=== PATIENT | male | born 1985 | race Caucasian/White ===

== ENCOUNTER 2023-10-03 10:02 | Emergency (ER) | payer OTHER ==
[~2023-10-03] VITALS: Ht 182.9 cm; Wt 79.5 kg
[2023-10-03 10:14] VITALS: BP 119/75; PULSE 90; RESP 15; TEMP 98.3
[2023-10-03] MEDS ORDERED: PERTUSS(ACELL),DIPH,TET VAC/PF 0.5 ML SYRINGE IM. ONE (10:45)
[2023-10-03] MEDS ORDERED: LIDOCAINE 1%/EPI 1:200,000/PF 30 ML VIAL SQ ONE (11:00)
[2023-10-03] MEDS ORDERED: CEPH-558 PO (12:05)
== END 2023-10-03 12:13 | disposition home or self-care (01) ==
LOC: EMS 10:05
DX: S01.81XA Laceration without foreign body of other part of head, initial encounter (principal); M54.50 Low back pain, unspecified; F12.90 Cannabis use, unspecified, uncomplicated; F11.90 Opioid use, unspecified, uncomplicated; F15.90 Other stimulant use, unspecified, uncomplicated; W18.39XA Other fall on same level, initial encounter; Y93.89 Activity, other specified; Y92.89 Other specified places as the place of occurrence of the external cause; Y99.8 Other external cause status
CPT/HCPCS: 99285; 70450; 72125; 72131; 90715; 90471; 12013; J3490

== ENCOUNTER 2023-12-29 08:48 | Emergency (ER) | payer OTHER ==
[~2023-12-29] VITALS: Ht 182.9 cm; Wt 80.0 kg
[~2023-12-29 08:48] MED LIST: CEPH-558 PO
[2023-12-29 08:52] VITALS: TEMP 97.1
[2023-12-29 09:46] LABS: ALANINE AMINOTRANSFERASE 69 U/L (12-78); ALBUMIN 4.1 g/dL (3.4-5.0); ALKALINE PHOSPHATASE 116 U/L (46-116); ANION GAP 10 mmol/L (8-16); BASOPHILS % (AUTO) 0.3 % (0.0-2.0); BILIRUBIN,TOTAL 0.8 mg/dL (0.1-1.0); CALCIUM, TOTAL 9.5 mg/dL (8.8-10.5); CARBON DIOXIDE 27 mmol/L (22-29); CHLORIDE 97 mmol/L (98-107); EOSINOPHILS % (AUTO) 0.3 % (1.0-6.0); GLOMERULAR FILTR. RATE CALC > 60 mL/min (>60); GLUCOSE,RANDOM 93 mg/dL (70-110); HEMATOCRIT 39.3 % (41-53); HEMOGLOBIN 13.3 g/dL (13.5-17.5); LYMPHOCYTES # (AUTO) 0.4 K/uL (1.0-4.8); LYMPHOCYTES % (AUTO) 6.5 % (22.0-44.0); MEAN CORPUSCULAR HEMOGLOBIN 32.8 pg (26.0-34.0); MEAN CORPUSCULAR HGB CONC 33.8 G/dL (31.0-37.0); MEAN CORPUSCULAR VOLUME 97 fL (80-100); MONOCYTES # (AUTO) 0.4 K/uL (0.1-1.0); MONOCYTES % (AUTO) 5.6 % (2.0-9.0); NEUTROPHILS # (AUTO) 5.5 K/uL (1.8-7.7); PLATELET COUNT (AUTO) 277 K/uL (150-450); RED BLOOD CELL COUNT(AUTO) 4.06 MIL/uL (4.50-5.90); RED CELL DISTRIBUTION WIDTH 13.9 % (11.5-14.5); SODIUM SERUM 133 mmol/L (136-145); TOTAL PROTEIN, SERUM 7.4 g/dL (6.4-8.2); UREA NITROGEN, BLOOD 14 mg/dL (7-18); WHITE BLOOD COUNT (AUTO) 6.3 K/uL (4.5-11.0)
[2023-12-29 09:48] LABS: NEUTROPHILS % (AUTO) 87.3 % (40.0-70.0)
[2023-12-29 09:49] LABS: ALCOHOL, BLOOD (SERUM) < 3 mg/dL (0-10); ASPARTATE AMINOTRANSFERASE 127 U/L (15-37)
[2023-12-29] MEDS: BACITRACIN 0.9 GM PACKET OINTMENT TP ONE (10:01)
[2023-12-29] MEDS: POTASSIUM CHLORIDE 20 MEQ ER TABLET PO ONE (10:42)
[2023-12-29 11:32] VITALS: BP 144/95; PULSE 100; RESP 16
== END 2023-12-29 12:52 | disposition home or self-care (01) ==
LOC: EMS 08:48
DX: F41.9 Anxiety disorder, unspecified (principal); M79.672 Pain in left foot; M79.671 Pain in right foot; F12.90 Cannabis use, unspecified, uncomplicated; F15.90 Other stimulant use, unspecified, uncomplicated; F11.90 Opioid use, unspecified, uncomplicated
CPT/HCPCS: 99283; 80053; 85025; 36415; G0480

== ENCOUNTER 2024-01-26 21:27 | Inpatient (IN) | payer OTHER ==
[~2024-01-26] VITALS: Ht 182.9 cm; Wt 70.5 kg
[2024-01-27] MEDS ORDERED: LIDOCAINE 1% 20 ML VIAL SQ ONE (01:00)
[2024-01-27 01:38] LABS: BASOPHILS % (AUTO) 0.3 % (0.0-2.0); EOSINOPHILS % (AUTO) 0.5 % (1.0-6.0); HEMATOCRIT 30.5 % (41-53); HEMOGLOBIN 10.1 g/dL (13.5-17.5); LYMPHOCYTES # (AUTO) 1.1 K/uL (1.0-4.8); LYMPHOCYTES % (AUTO) 6.2 % (22.0-44.0); MEAN CORPUSCULAR HEMOGLOBIN 31.3 pg (26.0-34.0); MEAN CORPUSCULAR HGB CONC 33.2 G/dL (31.0-37.0); MEAN CORPUSCULAR VOLUME 94 fL (80-100); MONOCYTES # (AUTO) 1.7 K/uL (0.1-1.0); MONOCYTES % (AUTO) 9.7 % (2.0-9.0); NEUTROPHILS # (AUTO) 14.7 K/uL (1.8-7.7); NEUTROPHILS % (AUTO) 83.3 % (40.0-70.0); PLATELET COUNT (AUTO) 376 K/uL (150-450); RED BLOOD CELL COUNT(AUTO) 3.23 MIL/uL (4.50-5.90); RED CELL DISTRIBUTION WIDTH 13.7 % (11.5-14.5); WHITE BLOOD COUNT (AUTO) 17.6 K/uL (4.5-11.0)
[2024-01-27] MEDS: LIDOCAINE/PF 1% 5 ML VIAL SQ ONE (01:54)
[2024-01-27 01:57] LABS: ANION GAP 4 mmol/L (8-16); CALCIUM, TOTAL 8.6 mg/dL (8.8-10.5); CARBON DIOXIDE 32 mmol/L (22-29); CHLORIDE 98 mmol/L (98-107); CREATININE 0.75 mg/dL (0.60-1.30); GLOMERULAR FILTR. RATE CALC > 60 mL/min (>60); GLUCOSE,RANDOM 102 mg/dL (70-110); POTASSIUM 4.2 mmol/L (3.5-5.1); SODIUM SERUM 134 mmol/L (136-145); UREA NITROGEN, BLOOD 12 mg/dL (7-18)
[2024-01-27 02:04] LABS: ALANINE AMINOTRANSFERASE 20 U/L (12-78); ALBUMIN 2.3 g/dL (3.4-5.0); ALKALINE PHOSPHATASE 102 U/L (46-116); ASPARTATE AMINOTRANSFERASE 24 U/L (15-37); BILIRUBIN,TOTAL 0.3 mg/dL (0.1-1.0); TOTAL PROTEIN, SERUM 6.4 g/dL (6.4-8.2)
[2024-01-27] MEDS: CEFTAROLINE 600 MG/D5W 250 ML IV ONE (03:13)
[2024-01-27 04:59] LABS: COVID AG,FIA SOURCE NASAL SWAB
[2024-01-27 05:14] LABS: SARS-COV2 (COVID) ANTIGEN,FIA Negative (Negative)
[2024-01-27] MEDS ORDERED: ACETAMINOPHEN 325 MG TABLET PO PRN (08:30)
[2024-01-27] MEDS ORDERED: MORPHINE SULFATE 2 MG/ML SYRINGE IVP PRN (08:30)
[2024-01-27] MEDS ORDERED: OxyCODONE HCL/ACETAMINOPHEN 5-325 MG TABLET PO PRN (08:30)
[2024-01-27] MEDS ORDERED: MAGNESIUM HYDROXIDE SUSPENSION 30 ML UDCUP PO PRN (08:30)
[2024-01-27] MEDS ORDERED: ONDANSETRON HCL 4 MG/2 ML VIAL IVP PRN (08:30)
[2024-01-27] MEDS ORDERED: ZOLPIDEM TARTRATE 5 MG TABLET PO PRN (08:30)
[2024-01-27] MEDS: VANCOMYCIN 1.75GM/WATER(PEG) 350 ML IV ONE (09:14)
[2024-01-27] MEDS: FAMOTIDINE 20 MG TABLET PO SCH (09:14)
[2024-01-27] MEDS: DOCUSATE SODIUM 100 MG CAPSULE PO SCH (09:14)
[2024-01-27] MEDS ORDERED: PERMETHRIN 1% 60 ML LOTION TP ONE (11:45)
[2024-01-27 13:00] VITALS: BP 105/62; PULSE 88; RESP 18; TEMP 97.8; O2SAT 97
[2024-01-27] MEDS: PIPERACILLIN/TAZO 3.375 GM/D5W 50 ML IV SCH (13:18)
[2024-01-27] MEDS ORDERED: VANCOMYCIN 1.25 GM/WATER(PEG) 250 ML IV SCH (16:00)
[2024-01-27] MEDS ORDERED: HEPARIN SODIUM,PORCINE 5,000 UNITS/ML VIAL SQ SCH (16:00)
== END 2024-01-27 14:40 | disposition left against medical advice (07) | DRG 344 ==
LOC: EMS 21:27 → 6S 01-27 10:20
PROVIDERS: ADMIT Internal Medicine; ATTEND Internal Medicine
PROC: 0S9D3ZZ Drainage of Left Knee Joint, Percutaneous Approach (ICD-10-PCS; principal; 2024-01-27)
DX: M00.9 Pyogenic arthritis, unspecified (principal); F25.9 Schizoaffective disorder, unspecified; R65.10 Systemic inflammatory response syndrome (SIRS) of non-infectious origin without acute organ dysfunction; Z20.822 Contact with and (suspected) exposure to COVID-19; Z53.29 Procedure and treatment not carried out because of patient's decision for other reasons
CPT/HCPCS: 71045; 73700; 80053; 85025; 87040; 87070; 87205; 93005; 99285; J0712; J2001; J2543; J3490; Q9967; 36415-L1; 36415-TC

== ENCOUNTER 2024-01-29 14:14 | Inpatient (IN) | payer OTHER ==
[~2024-01-29] VITALS: Ht 182.9 cm; Wt 71.1 kg
[2024-01-29 15:55] LABS: BASOPHILS % (AUTO) 0.3 % (0.0-2.0); EOSINOPHILS % (AUTO) 0.8 % (1.0-6.0); HEMATOCRIT 30.7 % (41-53); HEMOGLOBIN 10.2 g/dL (13.5-17.5); LYMPHOCYTES # (AUTO) 1.3 K/uL (1.0-4.8); LYMPHOCYTES % (AUTO) 10.5 % (22.0-44.0); MEAN CORPUSCULAR HGB CONC 33.2 G/dL (31.0-37.0); MEAN CORPUSCULAR VOLUME 94 fL (80-100); MONOCYTES # (AUTO) 1.1 K/uL (0.1-1.0); MONOCYTES % (AUTO) 8.6 % (2.0-9.0); NEUTROPHILS # (AUTO) 10.1 K/uL (1.8-7.7); NEUTROPHILS % (AUTO) 79.8 % (40.0-70.0); PLATELET COUNT (AUTO) 460 K/uL (150-450); RED BLOOD CELL COUNT(AUTO) 3.28 MIL/uL (4.50-5.90); WHITE BLOOD COUNT (AUTO) 12.6 K/uL (4.5-11.0)
[2024-01-29 16:02] LABS: ANION GAP 8 mmol/L (8-16); CALCIUM, TOTAL 8.6 mg/dL (8.8-10.5); CARBON DIOXIDE 31 mmol/L (22-29); CHLORIDE 100 mmol/L (98-107); CREATININE 0.73 mg/dL (0.60-1.30); GLOMERULAR FILTR. RATE CALC > 60 mL/min (>60); GLUCOSE,RANDOM 94 mg/dL (70-110); POTASSIUM 3.4 mmol/L (3.5-5.1); SODIUM SERUM 139 mmol/L (136-145); UREA NITROGEN, BLOOD 10 mg/dL (7-18)
[2024-01-29] MEDS: AMPICILLIN SODIUM/SULBACTAM NA 3 GM in SODIUM CHLORIDE 0.9% 100 ML IV ONE (16:02)
[2024-01-29 16:31] LABS: LACTIC ACID 1.4 mmol/L (0.4-2.0)
[2024-01-29] MEDS ORDERED: *CLINICAL-CEFEPIME DOSING CLINICAL ONE (16:45)
[2024-01-29] MEDS ORDERED: ALBUTEROL SULFATE 2.5 MG/0.5 ML NEB SOLUTION NEB PRN (17:00)
[2024-01-29] MEDS ORDERED: BISACODYL 10 MG RECTAL RECTAL SUPPOSITORY PR PRN (17:00)
[2024-01-29] MEDS ORDERED: IPRATROPIUM BROMIDE 0.5 MG/2.5 ML NEB SOLUTION NEB PRN (17:00)
[2024-01-29] MEDS ORDERED: ACETAMINOPHEN 325 MG TABLET PO PRN (17:00)
[2024-01-29] MEDS ORDERED: MAGNESIUM HYDROXIDE SUSPENSION 30 ML UDCUP PO PRN (17:00)
[2024-01-29] MEDS ORDERED: ONDANSETRON HCL 4 MG/2 ML VIAL IVP PRN (17:00)
[2024-01-29] MEDS ORDERED: 0.9% SODIUM CHLORIDE 10 ML SYRINGE IVP PRN (17:00)
[2024-01-29] MEDS: VANCOMYCIN 1.5 GM/WATER(PEG) 300 ML IV ONE (17:04)
[2024-01-29] MEDS: MULTIVITAMINS, THERAPEUTIC TABLET PO SCH (17:23)
[2024-01-29] MEDS: FOLIC ACID 1 MG TABLET PO SCH (17:23)
[2024-01-29] MEDS: ENOXAPARIN SODIUM 40 MG/0.4 ML PF SYRINGE SQ SCH (17:27)
[2024-01-29] MEDS: THIAMINE 100 MG TABLET PO SCH (17:49)
[2024-01-29 17:51] LABS: C-REACTIVE PROTEIN QUANT 25.42 mg/dL (0.00-0.30)
[2024-01-29 17:59] LABS: ALCOHOL, BLOOD (SERUM) < 3 mg/dL (0-10)
[2024-01-29] MEDS: LIDOCAINE 1% 10 ML VIAL SQ ONE (18:03)
[2024-01-29] MEDS: CEFEPIME HCL 1 GM in DEXTROSE 5%-WATER 50 ML IV ONE (19:02)
[2024-01-29] MEDS: SODIUM CHLORIDE 0.9% 1,000 ML IV ONE (19:02)
[2024-01-29] MEDS: SODIUM CHLORIDE 0.9% 1,000 ML IV SCH (19:03)
[2024-01-29 19:43] LABS: APPEARANCE,URINE CLEAR (CLEAR); BILIRUBIN,URINE NEGATIVE (NEGATIVE); COLOR,URINE COLORLESS (YELLOW); GLUCOSE, URINE (UA) NEGATIVE (NEGATIVE); KETONES,URINE NEGATIVE (NEGATIVE); LEUKOCYTE ESTERASE ,URINE NEGATIVE (NEGATIVE); NITRATE,URINE NEGATIVE (NEGATIVE); OCCULT BLOOD,URINE NEGATIVE (NEGATIVE); PROTEIN,URINE NEGATIVE (NEGATIVE); SPECIFIC GRAVITIY, URINE 1.005 (1.003-1.030); UROBILINOGEN,URINE <=1.0 mg/dL (<=1.0)
[2024-01-29 19:50] LABS: ALCOHOL, URINE DRUG SCREEN NEGATIVE (NEGATIVE); AMPHET/METH SCREEN,URINE NEGATIVE (NEGATIVE); BARBITURATE SCREEN, URINE NEGATIVE (NEGATIVE); BENZODIAZEPINES SCREEN,URINE NEGATIVE (NEGATIVE); CANNABINOID SCREEN,URINE POSITIVE (NEGATIVE); COCAINE SCREEN,URINE NEGATIVE (NEGATIVE); METHADONE SCREEN, URINE POSITIVE (NEGATIVE); OPIATE SCREEN,URINE NEGATIVE (NEGATIVE); PHENCYCLIDINE SCREEN,URINE NEGATIVE (NEGATIVE)
[2024-01-29 20:43] VITALS: BP 98/50; PULSE 82; RESP 18; TEMP 98.6
[2024-01-29] MEDS: LACTOBACILLUS ACIDOPHILUS/BULGARICUS TABLET PO SCH (21:10)
[2024-01-29] MEDS: MORPHINE SULFATE 2 MG/ML SYRINGE IVP PRN (21:41)
[2024-01-29] MEDS: VANCOMYCIN 1.25 GM/WATER(PEG) 250 ML IV SCH (23:46)
[2024-01-30] MEDS ORDERED: VANCOMYCIN 1GM/WATER(PEG/NADA) 200 ML IV SCH
[2024-01-30] MEDS ORDERED: INFLUENZA VIRUS VACCINE QVS 2023-24 (6MO+)/PF 60 MCG/0.5 ML SYRINGE IM. ONE (00:30)
[2024-01-30] MEDS: CEFEPIME HCL 1 GM in DEXTROSE 5%-WATER 50 ML IV SCH (01:54)
[2024-01-30 04:09] VITALS: BP 110/59; PULSE 69; RESP 18; TEMP 98.4
[2024-01-30 07:22] LABS: BASOPHILS % (AUTO) 0.4 % (0.0-2.0); HEMOGLOBIN 10.8 g/dL (13.5-17.5); LYMPHOCYTES # (AUTO) 1.1 K/uL (1.0-4.8); LYMPHOCYTES % (AUTO) 12.4 % (22.0-44.0); MEAN CORPUSCULAR HEMOGLOBIN 31.7 pg (26.0-34.0); MEAN CORPUSCULAR HGB CONC 33.6 G/dL (31.0-37.0); MEAN CORPUSCULAR VOLUME 94 fL (80-100); MONOCYTES # (AUTO) 0.8 K/uL (0.1-1.0); MONOCYTES % (AUTO) 8.4 % (2.0-9.0); NEUTROPHILS % (AUTO) 76.8 % (40.0-70.0); PLATELET COUNT (AUTO) 439 K/uL (150-450); RED CELL DISTRIBUTION WIDTH 14.3 % (11.5-14.5); WHITE BLOOD COUNT (AUTO) 9.1 K/uL (4.5-11.0)
[2024-01-30 07:34] LABS: ALANINE AMINOTRANSFERASE 35 U/L (12-78); ALBUMIN 1.9 g/dL (3.4-5.0); ALKALINE PHOSPHATASE 115 U/L (46-116); ANION GAP 6 mmol/L (8-16); ASPARTATE AMINOTRANSFERASE 38 U/L (15-37); BILIRUBIN,TOTAL 0.2 mg/dL (0.1-1.0); CALCIUM, TOTAL 8.3 mg/dL (8.8-10.5); CARBON DIOXIDE 28 mmol/L (22-29); CHLORIDE 107 mmol/L (98-107); CREATININE 0.64 mg/dL (0.60-1.30); GLOMERULAR FILTR. RATE CALC > 60 mL/min (>60); GLUCOSE,RANDOM 94 mg/dL (70-110); POTASSIUM 3.9 mmol/L (3.5-5.1); SODIUM SERUM 141 mmol/L (136-145); TOTAL PROTEIN, SERUM 6.2 g/dL (6.4-8.2); UREA NITROGEN, BLOOD 7 mg/dL (7-18)
[2024-01-30 09:11] VITALS: BP 103/64; PULSE 65; RESP 18; TEMP 98.1
[2024-01-30 16:29] VITALS: BP 108/58; PULSE 78; RESP 20; TEMP 97.8
[2024-01-30 20:16] VITALS: BP 114/64; PULSE 73; RESP 18; TEMP 99.2
[2024-01-31 04:41] VITALS: BP 115/74; PULSE 68; RESP 18; TEMP 98.8
[2024-01-31 07:32] VITALS: BP 113/64; PULSE 70; RESP 18; TEMP 98
[2024-01-31 07:46] LABS: ANION GAP 9 mmol/L (8-16); CALCIUM, TOTAL 8.9 mg/dL (8.8-10.5); CARBON DIOXIDE 27 mmol/L (22-29); CHLORIDE 100 mmol/L (98-107); CREATININE 0.67 mg/dL (0.60-1.30); GLOMERULAR FILTR. RATE CALC > 60 mL/min (>60); GLUCOSE,RANDOM 99 mg/dL (70-110); POTASSIUM 4.4 mmol/L (3.5-5.1); SODIUM SERUM 136 mmol/L (136-145); UREA NITROGEN, BLOOD 12 mg/dL (7-18); VANCOMYCIN,RANDOM 17.5 mcg/mL (25.0-50.0)
[2024-01-31] MEDS: HYDROCODONE/ACETAMINOPHEN 5-325 MG TABLET PO PRN (08:41)
[2024-01-31] MEDS ORDERED: SODIUM CL IRRIG SOLN BOTTLE 250 ML IRRIG ONE (14:31)
[2024-01-31 15:57] VITALS: BP 118/68; PULSE 72; RESP 20; TEMP 98.2
[2024-01-31 19:28] VITALS: BP 106/64; PULSE 79; RESP 18; TEMP 99
[2024-01-31] MEDS: LURASIDONE HCL 40 MG TABLET PO SCH (21:22)
[2024-02-01 04:19] VITALS: BP 105/58; PULSE 75; RESP 18; TEMP 98.4
[2024-02-01 07:21] LABS: BASOPHILS % (AUTO) 0.8 % (0.0-2.0); EOSINOPHILS % (AUTO) 2.4 % (1.0-6.0); HEMATOCRIT 39.6 % (41-53); HEMOGLOBIN 13.4 g/dL (13.5-17.5); LYMPHOCYTES # (AUTO) 1.6 K/uL (1.0-4.8); LYMPHOCYTES % (AUTO) 16.3 % (22.0-44.0); MEAN CORPUSCULAR HEMOGLOBIN 31.5 pg (26.0-34.0); MEAN CORPUSCULAR HGB CONC 33.7 G/dL (31.0-37.0); MEAN CORPUSCULAR VOLUME 94 fL (80-100); MONOCYTES # (AUTO) 0.8 K/uL (0.1-1.0); MONOCYTES % (AUTO) 8.4 % (2.0-9.0); NEUTROPHILS # (AUTO) 7.2 K/uL (1.8-7.7); NEUTROPHILS % (AUTO) 72.1 % (40.0-70.0); PLATELET COUNT (AUTO) 598 K/uL (150-450); RED BLOOD CELL COUNT(AUTO) 4.24 MIL/uL (4.50-5.90); RED CELL DISTRIBUTION WIDTH 14.6 % (11.5-14.5); WHITE BLOOD COUNT (AUTO) 9.9 K/uL (4.5-11.0)
[2024-02-01 07:25] LABS: ANION GAP 7 mmol/L (8-16); C-REACTIVE PROTEIN QUANT 3.22 mg/dL (0.00-0.30); CALCIUM, TOTAL 8.6 mg/dL (8.8-10.5); CARBON DIOXIDE 28 mmol/L (22-29); CHLORIDE 102 mmol/L (98-107); CREATININE 0.59 mg/dL (0.60-1.30); GLOMERULAR FILTR. RATE CALC > 60 mL/min (>60); GLUCOSE,RANDOM 105 mg/dL (70-110); POTASSIUM 4.4 mmol/L (3.5-5.1); SODIUM SERUM 137 mmol/L (136-145); UREA NITROGEN, BLOOD 12 mg/dL (7-18)
[2024-02-01 07:54] LABS: ERYTHROCYTE SEDIMENTATION RATE 68 MM/HR (0-15)
[2024-02-01 08:07] LABS: HEPATITIS C AB (EIA) Non Reactive (Non Reactive)
[2024-02-01 08:19] VITALS: BP 115/58; PULSE 83; RESP 20; TEMP 98.4
[2024-02-01] MEDS: DOCUSATE SODIUM 100 MG CAPSULE PO PRN (08:45)
[2024-02-01] MEDS: NICOTINE POLACRILEX 2 MG LOZENGE PO PRN (14:31)
[2024-02-01 16:19] VITALS: BP 111/62; PULSE 78; RESP 18; TEMP 98.9
[2024-02-01 19:59] VITALS: BP 114/66; PULSE 87; RESP 18; TEMP 98.9
[2024-02-02 03:38] VITALS: BP 114/70; PULSE 68; RESP 18; TEMP 97.6
[2024-02-02 07:41] LABS: BASOPHILS % (AUTO) 0.5 % (0.0-2.0); HEMATOCRIT 39.3 % (41-53); HEMOGLOBIN 13.1 g/dL (13.5-17.5); LYMPHOCYTES # (AUTO) 1.8 K/uL (1.0-4.8); LYMPHOCYTES % (AUTO) 15.4 % (22.0-44.0); MEAN CORPUSCULAR HGB CONC 33.2 G/dL (31.0-37.0); MEAN CORPUSCULAR VOLUME 94 fL (80-100); MONOCYTES # (AUTO) 0.9 K/uL (0.1-1.0); MONOCYTES % (AUTO) 7.7 % (2.0-9.0); NEUTROPHILS # (AUTO) 8.7 K/uL (1.8-7.7); NEUTROPHILS % (AUTO) 75.4 % (40.0-70.0); PLATELET COUNT (AUTO) 641 K/uL (150-450); RED BLOOD CELL COUNT(AUTO) 4.21 MIL/uL (4.50-5.90); RED CELL DISTRIBUTION WIDTH 14.3 % (11.5-14.5); WHITE BLOOD COUNT (AUTO) 11.6 K/uL (4.5-11.0)
[2024-02-02 07:54] LABS: ANION GAP 9 mmol/L (8-16); CALCIUM, TOTAL 9.2 mg/dL (8.8-10.5); CARBON DIOXIDE 27 mmol/L (22-29); CHLORIDE 99 mmol/L (98-107); CREATININE 0.65 mg/dL (0.60-1.30); GLOMERULAR FILTR. RATE CALC > 60 mL/min (>60); GLUCOSE,RANDOM 103 mg/dL (70-110); POTASSIUM 3.9 mmol/L (3.5-5.1); SODIUM SERUM 135 mmol/L (136-145); UREA NITROGEN, BLOOD 15 mg/dL (7-18)
[2024-02-02] MEDS ORDERED: LURA40TA4 PO (10:23)
[2024-02-02] MEDS ORDERED: CLIN-26 PO ×2 (10:23→12:49)
[2024-02-02] MEDS ORDERED: SULF-261 PO ×2 (10:23→12:49)
== END 2024-02-02 13:25 | disposition left against medical advice (07) | DRG 344 ==
LOC: EMS 15:41 → AHU 18:18 → 6N 18:46
PROVIDERS: ADMIT Internal Medicine; ATTEND Internal Medicine
PROC: 0Y9J0ZZ Drainage of Left Lower Leg, Open Approach (ICD-10-PCS; principal; 2024-01-29)
PROC: 05H933Z Insertion of Infusion Device into Right Brachial Vein, Percutaneous Approach (ICD-10-PCS; 2024-01-30)
DX: M00.862 Arthritis due to other bacteria, left knee (principal); F25.1 Schizoaffective disorder, depressive type; L03.116 Cellulitis of left lower limb; Z59.00 Homelessness unspecified; L02.416 Cutaneous abscess of left lower limb; Z53.21 Procedure and treatment not carried out due to patient leaving prior to being seen by health care provider; F31.81 Bipolar II disorder; F19.10 Other psychoactive substance abuse, uncomplicated; Z87.891 Personal history of nicotine dependence; Z91.199 Patient's noncompliance with other medical treatment and regimen due to unspecified reason
CPT/HCPCS: 36245; 36569; 76937; 80048; 80053; 80202; 80307; 81003; 83605; 84145; 85025; 85651; 86140; 86803; 87040; 87340; 93970; 97116; 97163; 97166; 97530; 97535; 99285; G0480; J0295; J0692; J1650; J2270; J3490; J7030; J7050; J7060; Q9967

== ENCOUNTER 2025-09-09 18:25 | Emergency (ER) | payer OTHER ==
[~2025-09-09] VITALS: Ht 182.9 cm; Wt 81.8 kg
[~2025-09-09 18:25] MED LIST changes: -CEPH-558 PO; +CLIN-26 PO; +LURA40TA4 PO; +SULF1TAB94 PO
[2025-09-09 19:50] VITALS: BP 132/75; PULSE 94; RESP 14; TEMP 97.3; O2SAT 95
== END 2025-09-09 21:24 | disposition home or self-care (01) ==
LOC: EMS 18:25
DX: F10.129 Alcohol abuse with intoxication, unspecified (principal); F31.81 Bipolar II disorder; F12.90 Cannabis use, unspecified, uncomplicated; F14.90 Cocaine use, unspecified, uncomplicated; F15.90 Other stimulant use, unspecified, uncomplicated; Z79.899 Other long term (current) drug therapy; Y90.9 Presence of alcohol in blood, level not specified
CPT/HCPCS: 99283; Z7502